=== PATIENT | female | born 1995 | race Caucasian/White ===

== ENCOUNTER 2017-09-15 21:00 | Emergency (ER) | payer OTHER ==
[2017-09-16 01:10] LABS: URINE BLOOD (Dip) POC 1+ (NEGATIVE); URINE GLUCOSE (Dip) POC Negative (NEGATIVE); URINE KETONES (Dip) POC Negative (NEGATIVE); URINE LEUKOCYTE EST (Dip) POC Negative (NEGATIVE); URINE NITRITE (Dip) POC Negative (NEGATIVE); URINE TOTAL PROTEIN POC Negative (NEGATIVE)
== END 2017-09-16 03:52 | disposition home or self-care (01) ==
LOC: FTE 21:00
DX: M54.5 Low back pain (principal); B37.3 Candidiasis of vulva and vagina
CPT/HCPCS: 72131; 81003; 99284-25